=== PATIENT | female | born 1970 | race African-American/Black ===

== ENCOUNTER → 2018-02-28 | Outpatient (CLI) | payer MEDICARE, OTHER | END | disposition home or self-care (01) | LOC: MAMMO 10:11 | DX: R92.8 Other abnormal and inconclusive findings on diagnostic imaging of breast (principal); I10 Essential (primary) hypertension; E78.5 Hyperlipidemia, unspecified; E78.00 Pure hypercholesterolemia, unspecified; Z85.3 Personal history of malignant neoplasm of breast | CPT/HCPCS: 76641; 77065; G0279 ==

== ENCOUNTER → 2018-03-23 | Outpatient (CLI) | payer MEDICARE, OTHER ==
[~2018-03-23] MED LIST: CONTRAST GIVEN MC
[2018-03-23] MEDS: IOHEXOL 240 MG/ML 50ML VIAL. PO (09:56)
[2018-03-23] MEDS: IOHEXOL 300 MG/ML 100ML VIAL. IV (09:56)
== END | disposition home or self-care (01) ==
LOC: NM 08:12
DX: C50.911 Malignant neoplasm of unspecified site of right female breast (principal); E89.0 Postprocedural hypothyroidism; Z17.0 Estrogen receptor positive status [ER+]
CPT/HCPCS: 71260; 74177; 78306; 96374; A9503; Q9966; Q9967

== ENCOUNTER → 2020-04-08 | Outpatient (CLI) | payer MEDICARE, MEDICAID ==
[2016-12-05 13:00] VITALS: BP 132/76
[~2020-04-08] MED LIST changes: +ACET325T21 PO; +ANAS1TAB PO; +ARIP30TA4 PO; +BENZ1TAB5 PO; +BUDE10.2 IH; +CETI10TA16 PO; +CHOL200074 PO; -CONTRAST GIVEN MC; +CYCL10TA2 PO; +DIVA500T17 PO; +FLUT16SP2 NS; +LOSA1TAB22 PO; +MAGN400T5 PO; +NIAC-23 PO; +NITR100C62 PO; +OMEG1CAP6 PO; +OMEP20CA16 PO; +TRAZ-123 PO
--- NOTE | 2020-04-08 11:35 | RAD ---
EXAMINATION: MAMMO TAMMY SCREEN LT History: Reason: HX OF RT BREAST CANCER / Spl. Instructions: / History: COMPARISON/CORRELATION: 04/09/2019, 02/28/2018, 10/06/2015 Technique: Routine left unilateral digital mammogram views were obtained. CAD was utilized. 3-D tomosynthesis images were acquired. Findings: Breast Tissue Density B : There are scattered areas of fibroglandular density. There are no dominant masses, suspicious microcalcifications, or architectural distortion. Multiple calcifications are again seen similar to the prior exam. IMPRESSION: No mammographic evidence of malignancy. Recommend routine screening. BI-RADS category 1: Negative. The images were reviewed with computer aided detection. Patient information is entered into the reminder system with a target due date for the next screening mammogram. Mammography is the most sensitive method for finding small breast cancers, but it does not detect them all and is not a substitute for careful clinical examination. A negative mammogram does not negate a clinically suspicious finding and should not result in delay in biopsying a clinically suspicious abnormality. "Our facility is accredited by the [employer] M[employer] Electronically signed by: Cb Pollard MD (04/08/2020 11:33 AM) [id number]
== END | disposition home or self-care (01) ==
LOC: MAMMO 08:57
PROVIDERS: ATTEND Internal Medicine Hematology & Oncology
DX: R92.1 Mammographic calcification found on diagnostic imaging of breast (principal)
CPT/HCPCS: 77061; G0279

== ENCOUNTER → 2021-04-27 | Outpatient (CLI) | payer MEDICARE, MEDICAID ==
[2016-12-05 13:00] VITALS: BP 132/76
--- NOTE | 2021-04-27 16:01 | RAD ---
EXAM: Unilateral digital 3-D screening mammography, left. HISTORY: Personal history of right breast cancer status post meniscectomy. Routine mammographic scree coby. Left reduction mammoplasty. TECHNIQUE: Left full field digital images were obtained in CC and MLO projections. Computer-aided det ection was applied. COMPARISON: 04/08/2020, 04/09/2019, 10/06/2015. COMPOSITION: C. The breasts are heterogeneously dense, which may obscure small masses. FINDINGS: A nodule posteriorly on the left MLO view as a stable correlate on the 2014 study. Architec tural distortion superiorly and posteriorly on the MLO view is stable. Multiple circumscribed/obscure d nodules appear stable. There are diffuse coarse benign calcifications. BI-RADS CATEGORY 2: Benign. RECOMMENDATION: 1. Routine screening mammography in one year. If mammography demonstrates dense breast tissue (heterogenously dense or extremely dense, category C or D), which could hide abnormalities, and if other risk factors for breast cancer have been identifi ed, supplemental screening tests that may be suggested by the ordering physician may be of benefit. D ense breast tissue, in and of itself, is a relatively common condition. Therefore, this information i s not provided to cause undue concern, but rather to raise awareness and to promote discussion with t he referring physician regarding the presence of other risk factors, in addition to dense breast tiss ue. The results of this mammography examination is provided to the patient and referring physician. T he patient should contact their referring physician if any questions or concerns exist regarding this report. PQRS compliance statement - Patient information was entered into a reminder system with a target due date for the next mammogram. "Our facility is accredited by the [employer]amm[employer]." Electronically signed by: Brandon Rosales MD (04/27/2021 3:59 PM) [id number]
== END ==
LOC: MAMMO 14:27
PROVIDERS: ATTEND Family Medicine
DX: Z12.31 Encounter for screening mammogram for malignant neoplasm of breast (principal)
CPT/HCPCS: 77063; 77067

== ENCOUNTER → 2021-10-14 | Outpatient (CLI) | payer MEDICARE, MEDICAID ==
[2016-12-05 13:00] VITALS: BP 132/76
[~2021-10-14] MED LIST changes: +CYCL10TA19 PO; -CYCL10TA2 PO; +MAGN400T48 PO; -MAGN400T5 PO; -NIAC-23 PO; +NIAC-25 PO
[2021-10-14 10:40] LABS: BASO # 0.1 x10^3/uL (0.0-0.2); BASO % 1 % (0-3); EOS # 0.1 x10^3/uL (0.0-0.7); EOS % 1 % (0-3); HEMATOCRIT 35.1 % (36.0-47.0); HEMOGLOBIN 11.2 g/dL (12.0-15.5); LYMPH # 1.8 x10^3/uL (1.0-4.8); LYMPH % 20 % (24-48); MEAN CORPUSCULAR HEMOGLOBIN 32 pg (25-35); MEAN CORPUSCULAR HGB CONC 32 g/dL (31-37); MEAN CORPUSCULAR VOLUME 102 fL (79-100); MONO # 1.3 x10^3/uL (0.0-1.1); MONO % 15 % (0-9); NEUT # 5.7 x10^3/uL (1.8-7.7); NEUT % 63 % (31-73); PLATELET COUNT 361 x10^3/uL (140-400); RED BLOOD COUNT 3.45 x10^6/uL (3.50-5.40); WHITE BLOOD COUNT 8.9 x10^3/uL (4.0-11.0)
== END ==
LOC: ONCLAB 10:13
PROVIDERS: ATTEND Internal Medicine Hematology & Oncology
DX: D50.0 Iron deficiency anemia secondary to blood loss (chronic) (principal)
CPT/HCPCS: 36415; 82607; 82728; 82746; 83540; 83550; 85025

== ENCOUNTER → 2022-01-12 | Outpatient (CLI) | payer MEDICARE, MEDICAID ==
[2016-12-05 13:00] VITALS: BP 132/76
[2022-01-12 11:03] LABS: BASO % 0 % (0-3); EOS # 0.1 x10^3/uL (0.0-0.7); EOS % 1 % (0-3); HEMOGLOBIN 11.2 g/dL (12.0-15.5); LYMPH % 24 % (24-48); MEAN CORPUSCULAR HEMOGLOBIN 33 pg (25-35); MEAN CORPUSCULAR HGB CONC 32 g/dL (31-37); MEAN CORPUSCULAR VOLUME 102 fL (79-100); MONO % 12 % (0-9); NEUT # 5.3 x10^3/uL (1.8-7.7); NEUT % 62 % (31-73); PLATELET COUNT 383 x10^3/uL (140-400); RED BLOOD COUNT 3.45 x10^6/uL (3.50-5.40); RED CELL DISTRIBUTION WIDTH 14.9 % (11.5-14.5); WHITE BLOOD COUNT 8.4 x10^3/uL (4.0-11.0)
== END ==
LOC: ONCLAB 10:06
PROVIDERS: ATTEND Internal Medicine Hematology & Oncology
DX: C50.811 Malignant neoplasm of overlapping sites of right female breast (principal)
CPT/HCPCS: 36415; 82607; 82728; 82746; 83540; 83550; 85025